=== PATIENT | male | born 1955 | race Caucasian/White ===

== ENCOUNTER 2018-06-13 11:58 | Emergency (ER) | payer OTHER ==
[~2018-06-13] VITALS: Ht 180.3 cm; Wt 86.2 kg
[2018-06-13] MEDS ORDERED: ASPIRIN325 MG PO (12:09)
[2018-06-13] MEDS ORDERED: VITAMIN C500 M5 PO (12:10)
[2018-06-13] MEDS ORDERED: SIMVASTATIN20 MG PO (12:10)
[2018-06-13] MEDS ORDERED: VITAMIN D1000 UNIT PO (12:10)
[2018-06-13] MEDS ORDERED: CELEBREX200 MG PO (12:11)
[2018-06-13] MEDS ORDERED: NEURONTIN300 MG PO (12:11)
== END 2018-06-13 15:57 | disposition home or self-care (01) ==
LOC: ED 11:58
DX: S42.031A Displaced fracture of lateral end of right clavicle, initial encounter for closed fracture (principal); S32.591A Other specified fracture of right pubis, initial encounter for closed fracture; Z79.82 Long term (current) use of aspirin; Z79.899 Other long term (current) drug therapy; V19.9XXA Pedal cyclist (driver) (passenger) injured in unspecified traffic accident, initial encounter
CPT/HCPCS: 72192; 73030; 73502; 96374; 99284; J1885